=== PATIENT | male | born 1995 | race Caucasian/White ===

== ENCOUNTER → 2019-07-29 16:15 | Outpatient (BNVA) | payer OTHER, SELFPAY | PROVIDERS: Family Provider Family Medicine; PCP Nurse Practitioner Family; Visit Provider Nurse Practitioner Family | DX: M79.641 Pain in right hand (principal) | CPT/HCPCS: 73130 ==

== ENCOUNTER 2022-04-18 20:23 | Emergency (ER) | payer OTHER, SELFPAY ==
[2022-04-18 20:29] VITALS: BP 137/85; PULSE 98; RESP 16; TEMP 36.8; O2SAT 98
--- NOTE | 2022-04-18 21:01 | ED_ITS ---
HPI - Wound/Laceration General: Chief Complaint: Wound/Laceration Stated Complaint: left hand lac Time Seen by Provider: 04/18/22 21:01 History of Present Illness: 26-year-old male patient comes in today for injury to the left thenar region of the palmar hand. Patient reports a glass broke while he was doing dishes stabbing him into the hand. Patient believes his immunizations are up-to-date. Patient appears no acute distress. Review of Systems Skin/Breast: Reports: other (Injury left hand) [facility] ED PFSH: Medical History (Updated 04/18/22 @ 21:33 by AYAN Etienne) Anxiety disorder Depression Tobacco dependence Surgical History (Updated 12/12/21 @ 13:26 by Jamie Ferguson NP) History of appendectomy History of inguinal hernia repair History of oral surgery History of right knee surgery History of tonsillectomy Family History (Updated 12/12/21 @ 13:32 by Jamie Ferguson NP) Grandmother Cancer Maternal grandmother had breast cancer and bladder cancer Other Anxiety and depression Diabetes Hypertension Lupus Parkinson's disease Social History Smoking and tobacco status: current every day smoker smokeless tobacco Alcohol intake: current Alcohol intake frequency: few times a month Physical Exam Const: COMMON NORMALS: alert HENMT: COMMON NORMALS: normocephalic HEAD & SCALP: normocephalic Neck/C-Spine: COMMON NORMALS: full ROM Resp: COMMON NORMALS: normal respiratory effort Extremity: LEFT UPPER EXTREMITY: Yes hand & digits (2 cm laceration noted to the thenar hand.) Neuro: SENSORIUM/ORIENTATION: Yes alert Skin: TRAUMA: laceration (2 cm left palmar hand thenar region) linear Procedures Laceration Laceration 1: Site: hand Side (If applicable): left Size (cm): 2 Description: linear Depth: simple, single layer Local Anesthetic: lidocaine 1% Amount of anesthesia used (mL): 2 Pre-repair: wound explored and irrigated extensively Skin layer closed with: nylon Size (cm): 5-0 Number of sutures: 3 Technique: simple, interrupted (2) and horizontal mattress Course Vital Signs: Vital signs: Vital Signs Temperature 98.2 F 04/18/22 20:29 Pulse Rate 98 04/18/22 20:29 Respiratory Rate 16 04/18/22 20:29 Blood Pressure 137/85 04/18/22 20:29 Pulse Oximetry 98 04/18/22 20:29 Oxygen Delivery Me thod 04/18/22 20:29 MDM - Wound/Laceration Medical Decision Making 26-year-old male patient comes in for injury to the left palmar hand. On exam there is a 2 cm laceration to the thenar aspect of the left hand. Normal range of motion of the hand. Good strength. No signs of tendon injury. Differential diagnosis includes laceration, foreign body, tendon injury. No foreign body or tendon injury is noted on exam. Wound was repaired with 3 sutures. Patient tolerated well. Postprocedure care and instructions were reviewed with patient with recommendations for follow-up. Patient stated understanding. Discharge Plan Discharge Patient Disposition: Home Clinical Impression: Hand laceration Qualifiers: Encounter type: initial encounter Foreign body presence: without foreign body Laterality: left Qualified Code(s): S61.412A - Laceration without foreign body of left hand, initial encounter Condition: Stable Prescriptions: No Action duloxetine 40 mg capsule,delayed release(DR/EC) 40 mg PO DAILY Qty: 90 1RF alprazolam 0.25 mg tablet 0.25 mg PO DAILY PRN (Reason: anxiety) Qty: 30 0RF Rx Instructions: 1-2 tab daily PRN for anxiety Discharge Orders: Discharge ED (Routine); Ordered 04/18/22 Ordered By: Toby Ingram Referrals: Hernan Mccauley MD [Family Provider] - Jamie Ferguson NP [Primary Care Provider] - Discharge Diet: Usual diet Discharge Activity: Increase activity as tolerated Patient Instructions: Care For Your Stitches (ED) Activity Restrictions/Additional Instructions: Keep wound clean and dry for the next 2 days. Avoid the wound getting wet at least for 48 hours to help prevent infection. Sutures need to come out and 5 to 7 days. Follow-up with primary care in 1 week. Return to emergency department for new concerns or worsening symptoms. Coding Level of Care Code ED Real Estate Executive Assistant for Kendall Arora
[2022-04-18 22:04] VITALS: RESP 16
== END 2022-04-18 22:06 | disposition home or self-care (01) ==
PROVIDERS: Emergency Provider Nurse Practitioner Family; Family Provider Family Medicine; PCP Clinical Nurse Specialist Adult Health
DX: S61.412A Laceration without foreign body of left hand, initial encounter (principal); F17.220 Nicotine dependence, chewing tobacco, uncomplicated; W25.XXXA Contact with sharp glass, initial encounter; Y93.G1 Activity, food preparation and clean up
CPT/HCPCS: 12001; 99282

== ENCOUNTER → 2024-05-25 07:07 | Outpatient (BNVA) | payer MEDICAID, SELFPAY | PROVIDERS: Family Provider Family Medicine; PCP Clinical Nurse Specialist Adult Health; Visit Provider Clinical Nurse Specialist Adult Health | DX: R03.0 Elevated blood-pressure reading, without diagnosis of hypertension (principal); J45.20 Mild intermittent asthma, uncomplicated; F41.1 Generalized anxiety disorder | CPT/HCPCS: 80053; 82040; 84270; 84403; 84443; 85025 ==

== ENCOUNTER 2024-06-08 13:39 | Outpatient (CLI) | payer MEDICAID, SELFPAY ==
--- NOTE | 2024-06-08 14:00 | US_ITS ---
WS: [id number] ULTRASOUND SOFT TISSUES LEFT lateral lumbar region. HISTORY: M79.89 - Other specified soft tissue disorders COMPARISON: None available. TECHNIQUE: 2-D and color Doppler imaging is submitted. Ultrasound directed along the LEFT lateral lower spine in the area of interest. By ultrasound no abnormality is identified. Normal appearance of the fat and soft tissue. Visually there is prominent soft tissue which may indicate there is an underlying lipoma but there is no identifiable mass seen by ultrasound. US/US soft tissue/extremity [id number] IMPRESSION: No identifiable mass seen by ultrasound along the LEFT lateral lumbar region.
== END 2024-06-08 13:40 | disposition home or self-care (01) ==
LOC: RAD 13:40
PROVIDERS: Family Provider Family Medicine; PCP Clinical Nurse Specialist Adult Health; Visit Provider Clinical Nurse Specialist Adult Health
DX: M79.89 Other specified soft tissue disorders (principal)
CPT/HCPCS: 76882

== ENCOUNTER 2024-06-28 07:39 | Day surgery (SDC) | payer MEDICAID, SELFPAY ==
[2024-06-28] VITALS (9 sets, daily range): BP systolic 100–124; BP diastolic 73–80; PULSE 91–104; RESP 12–17; TEMP 36.6–36.8; O2SAT 94–100; BMI 27.7
--- NOTE | 2024-06-28 08:02 | W.PM.OPSUD ---
Surgery/Procedure H&P Update DATE OF PROCEDURE: June 28, 2024 DATE H&P PERFORMED: 06/15/24 H&P UPDATE INFORMATION: I have reviewed H&P completed within last 30 days, I have examined patient prior to procedure and No changes to prior documentation PLANNED PROCEDURE: Operation Date: 06/28/24 09:20 Proposed Procedures p excision of soft tissue mass on left side of back(Left) - Matthew Owens MD
--- NOTE | 2024-06-28 08:11 | P.ANESASSM_ITS ---
Pre-Anesthetic Assessment Height/Weight: Height 6 ft 1 in Weight 210 lb O2 Del Method Room Air 06/28/24 07:56 Preop Diagnosis: Back lipoma Operation Date: 06/28/24 09:20 Proposed Procedures p excision of soft tissue mass on left side of back(Left) - Matthew Owens MD Was Beta Tabby taken within 24 hours: N/A Was Clonidine taken within 24 hours: N/A Last intake: Intake Last Liquid Date 06/27/24 Last Liquid Time 20:00 Last Solid Date 06/27/24 Last Solid Time 20:00 Social No alcohol Quit smoking 10 years ago Exam alert, oriented x 3, clear to auscultation bilaterally and regular rate & rhythm Airway Submandibular: within normal limits Cervical ROM: within normal limits Mallampati: Class II Dentition: full Comments: Comments: Large benavidez Anesthetic Plan ASA status: 2 Anesthesia: General Other: No prior issues with anesthesia NPO since yesterday evening History of asthma, controlled with inhalers Denies any cardiac issues Prior smoker, quit 10 years ago METs greater than 4 Plan for general anesthesia Medications/Allergies Home Medications ?Medication ?Instructions ?Recorded ?Confirmed ?Last Taken ?Type albuterol sulfate 90 mcg/actuation 2 inh inhalation QI D PRN shortness 12/10/23 06/28/24 Unknown Rx aerosol inhaler of breath or wheezing #8.5 g santos alprazolam 0.5 mg tablet 0.5 mg PO DAILY PRN anxiety #30 06/01/24 06/27/24 Unknown Rx tabs cyclobenzaprine 5 mg tablet 5 mg PO TID PRN muscle spa sm #30 06/01/24 06/27/24 Unknown Rx tabs bupropion HCl 100 mg tablet,12 hr 100 mg PO QAM #30 ta bs 06/08/24 06/27/24 06/27/24 Rx sustained-release (Wellbutrin SR) Allergies Allergy/AdvReac Type Severity Reaction Status Date / Time cefaclor (From [facility]) Allergy HIVES Verified 06/27/24 12:34 [facility] Anesthesia Medical History Elevated blood pressure reading possibly white coat syndrome Mild intermittent asthma hx of asthma as a child. occasional bouts of bronchitis as an adult. Tobacco dependence quit 2022 Anxiety disorder Surgical History History of oral surgery History of tonsillectomy History of appendectomy History of right knee surgery History of inguinal hernia repair Family History Grandmother Cancer Maternal grandmother had breast cancer and bladder cancer Other Anxiety and depression Diabetes Hypertension Lupus Parkinson disease Social History Smoking and tobacco/nicotine status: never used tobacco/nicotine Quit status (tobacco/nicotine): has quit using Year quit tobacco: 2022 Former quit date comment: previously used smokeless tobacco Alcohol intake: current Alcohol intake frequency: few times a month Substance/Drug Use: never Household members: spouse and children Marital status: Number of children: 2 Data Anesthesia Cardiac Studies: No Data to Display
[2024-06-28] MEDS: sodium chloride 0.9% 1,000 ML 30 ML IV (08:32)
[2024-06-28] MEDS: vancomycin 2,000 MG/400 ML PIGGYBACK 200 MG IV (08:33)
[2024-06-28] MEDS: lidocaine-epi 1% 20 mL INJ 10 ML INJECTION (09:30)
--- NOTE | 2024-06-28 09:31 | P.OP_ITS ---
Operative Report Date of procedure: June 28, 2024 Pre-op diagnosis: Left dorsal lipoma Post-op diagnosis: same Post-op findings: Left dorsal lipoma 4x5cm Procedure done: Dorsal lipoma excision Implants: NA Specimens removed/disposition: Left dorsal lipoma sent to pathology Pathology: Left dorsal lipoma sent to pathology Surgeon: Matthew Owens MD Failure Analysis Engineer: N/A Anesthesia: General Estimated blood loss (mL): 10 Complications: N/A Findings: Left dorsal lipoma 5 x 4 cm Condition: stable Disposition: same day Brief History: 28-year-old male who presented with a left dorsal lipoma in the lumbar region. Discussed risk and benefits and patient agreed to proceed with left dorsal soft tissue mass excision. Procedure: Lipoma marked in preop with patient's input. Patient was brought into the operating room. SCDs were on and functioning. Antibiotics were administered. General anesthesia was induced. Patient was then positioned prone. Gel rolls were applied to chest and hip. Upper extremities were appropriately padded. The dorsum was prepped and draped in usual sterile fashion. A 4 cm incision was carried out over the lipoma site. Tissue was dissection was carried down to the subcutaneous tissues using electrocautery. Lipoma capsule was identified. The mass was grasped with an Allis clamp. The lipoma was excised using electrocautery with its capsule intact. Specimen was passed off and sent to pathology. Adequate hemostasis was achieved using electrocautery. The wound was irrigated with normal saline. The wound was closed in multiple layers using interrupted 2-0 Vicryl. Skin was closed using interrupted vertical mattress sutures using 2-0 nylon. Patient woke up from anesthesia without any complications and transferred to PACU.
--- NOTE | 2024-06-28 09:55 | PC.NURSE ---
0955 - pt states his pain is 7/10 but does not want any type of narcotic IV
[2024-06-28] MEDS: oxyCODONE 5 mg IR Tab/Cap PO (10:35)
--- NOTE | 2024-06-28 11:30 | ANE.PACU2 ---
Inpatient post-anesthesia follow up: Airway intact: Yes Vital signs: Temperature 98.2 F Pulse Rate 99 Respiratory Rate 16 Blood Pressure 115/78 Pulse Oximetry 97 Oxygen Delivery Me thod Room Air Oxygen Flow Rate Fraction of Inspir ed Oxygen Hydration adequate: Yes Nausea and vomiting: No Pain level: 1 Mental status: Baseline
== END 2024-06-28 11:30 | disposition home or self-care (01) ==
PROVIDERS: PCP Clinical Nurse Specialist Adult Health; Visit Provider Student in an Organized Health Care Education/Training Program
PROC: (CPT 21931; principal; 2024-06-28 09:20)
DX: D17.1 Benign lipomatous neoplasm of skin and subcutaneous tissue of trunk (principal); Z79.899 Other long term (current) drug therapy; Z88.1 Allergy status to other antibiotic agents; Z87.891 Personal history of nicotine dependence
CPT/HCPCS: 21931; 88307; J0131; J1100; J1885; J2250; J2405; J2704; J3010; J3372; J3490; J7030

== ENCOUNTER 2025-03-29 19:12 | Emergency (ER) | payer MEDICAID, SELFPAY ==
[2025-03-29] VITALS (7 sets, daily range): BP systolic 114–135; BP diastolic 71–83; PULSE 95–124; RESP 16; TEMP 36.9; O2SAT 94–98; BMI 29.8
--- NOTE | 2025-03-29 19:29 | XRR_ITS ---
PROCEDURE INFORMATION: Exam: XR Chest Exam date and time: 03/29/2025 7:32 PM Age: 29 years old Clinical indication: Pain; Angina pectoris; Additional info: Chest pain, dry cough, 1 week, tachy/hypertensive TECHNIQUE: Imaging protocol: Radiologic exam of the chest. Views: 1 view. COMPARISON: No relevant prior studies available. FINDINGS: Lungs: Unremarkable. No consolidation. Pleural spaces: No pneumothorax. Heart/Mediastinum: Unremarkable. No cardiomegaly. Bones/joints: Unremarkable. XR/XR chest 1V portable [id number] IMPRESSION: No acute findings.
--- NOTE | 2025-03-29 19:29 | ECG_ITS ---
[facility] Date: 2025-03[facility]29 Pat Name: Luis Mckeon Department: Room: Gender: Male Ski Instructor: : 1995 Requested By: Ry Garcia Order Number: [id number] Hernandez MD: Rosibel Moody M.D. Measurements Intervals [place] Rate: 127 P: 67 VA: 128 QRS: 114 QRSD: 87 T: 43 QT: 293 QTc: 426 Interpretive Statements SINUS TACHYCARDIA INDETERMINATE AXIS POSSIBLE RIGHT VENTRICULAR CONDUCTION DELAY [RSR (QR) IN V1/V2] LEFT POSTERIOR FASCICULAR BLOCK [QRS AXIS > 109, INFERIOR Q] No previous ECG available for comparison Electronically Signed On 03-30-2025 18:47:36 SCIENCE EDUCATION PROFESSOR by Rosibel Moody M.D. [id number]
--- NOTE | 2025-03-29 19:47 | W.ED.CHESTPA ---
HPI - Chest Pain General: Chief Complaint: Chest Pain Stated Complaint: Chest pain Time Seen by Provider: 03/29/25 19:24 History of Present Illness: 29-year-old male past medical history significant for hypertension presenting to the emergency department with approximately 1 week history of dry cough and initially intermittent left-sided chest and left sided shoulder blade pain, now more constant x 24 hours, 5 out of 10 in severity, stabbing, worse with deep breathing, no associated fevers, no associated runny nose or sore throat, no leg swelling or calf tenderness, no recent travel or immobilization, no personal or family history of DVT/PE, no exogenous hormone use, only significant family history of being strokes in both parents, non-smoker, denies drug use, denies recent travel or sick contacts. Related Data Previous Rx's ?Medication ?Instructions ?Recorded albuterol sulfate 90 mcg/actuation 2 inh inhalation QID PRN shortness 12/10/23 aerosol inhaler of breath or wheezing #8.5 grams alprazolam 0.5 mg tablet 0.5 mg PO DAILY PRN anxiety #30 06/01/24 tabs cyclobenzaprine 5 mg tablet 5 mg PO TID PRN muscle spasm #30 06/01/24 tabs bupropion HCl 100 mg tablet,12 hr 100 mg PO QAM #30 tabs 06/08/24 sustained-release (Wellbutrin SR) benzonatate 200 mg capsule 200 mg PO BID PRN cough 7 days #14 03/29/25 caps ibuprofen 600 mg tablet 600 mg PO Q6H PRN pain 7 days #30 03/29/25 tabs Allergies Allergy/AdvReac Type Severity Reaction Status Date / Time cefaclor (From [facility]) Allergy HIVES Verified 07/17/24 10:51 [facility] ED PFSH: Medical History Elevated blood pressure reading possibly white coat syndrome Mild intermittent asthma hx of asthma as a child. occasional bouts of bronchitis as an adult. Tobacco dependence quit 2022 Anxiety disorder Surgical History History of oral surgery History of tonsillectomy History of appendectomy History of right knee surgery History of inguinal hernia repair Family History Grandmother Cancer Maternal grandmother had breast cancer and bladder cancer Other Anxiety and depression Diabetes Hypertension Lupus Parkinson disease Social History Smoking and tobacco/nicotine status: never used tobacco/nicotine Quit status (tobacco/nicotine): has quit using Year quit tobacco: 2022 Former quit date comment: previously used smokeless tobacco Alcohol intake: current Alcohol intake frequency: few times a month Substance/Drug Use: never Household members: spouse and children Marital status: Number of children: 2 Physical Exam Narrative: EXAM NARRATIVE: Gen: A&Ox4, no acute distress, nontoxic appearing HEENT: Normocephalic, atraumatic, no scleral icterus, external ears normal, moist mucous membranes Neck: Supple, full range of motion, no observable masses Lungs: No Respiratory distress, Lungs clear to auscultation bilaterally no rales, rhonchi, wheezing CV: Tachycardic to 120s with regular rhythm, no murmur, no pitting edema to lower extremities bilaterally, no tenderness palpation of the chest wall or upper back, no skin changes Abdomen: Soft, nondistended, nontender to palpation MSK: No joint swelling, FROM all 4 extremities Skin: No rashes, petechiae, lesions. Normal color per patient. Neuro: Alert and oriented, no slurred speech, sensation and strength grossly intact all 4 extremities Psych: Appropriate for situation. Course Reevaluation(s): Reevaluation #1: Patient reevaluated, symptoms stable, heart rate still elevated although has improved with some fluids, workup reassuring against the presence of any significant myocarditis or pulmonary embolism as causes of occult tachycardia, patient does endorse some anxiety related to his symptoms and presenting to the ER and does have an as needed prescription for Xanax which she has not taken recently, suspect could be exacerbating the elevated heart rate. At this time he does not have any evidence of emergent pathology that would warrant admission or further intervention, he feels comfortable with monitoring his symptoms at home, optimizing hydration, NSAIDs for pain and antitussives, discussed extensively return precautions to include worsening pain, hemoptysis, fevers, shortness of breath, leg swelling or calf tenderness, episodes of passing out or palpitations, or any other concerns. Time: 21:12 Vital Signs: Vital signs: Vital Signs Temperature 98.4 F 03/29/25 19:17 Pulse Rate 102 H 03/29/25 20:38 Respiratory Rate 16 03/29/25 19:17 Blood Pressure 119/71 03/29/25 20:38 Pulse Oximetry 94 03/29/25 20:38 Oxygen Delivery Me thod Room Air 03/29/25 20:38 MDM - Chest Pain Medical Decision Making Generally healthy 29-year-old male with a past medical history significant for hypertension, anxiety, presenting to the emergency department with 1 week history of dry cough, initially intermittent and now constant left-sided chest pain and left scapular pain, some pleuritic component, no hypoxia or tachypnea, no fever, speaking in full sentences, no acute distress, suspect viral respiratory infection/bronchitis but differential would also include pneumonia, pericarditis/myocarditis, ACS less likely but considered, pulmonary embolism less likely but considered and given patient with tachycardia and pleuritic chest pain will obtain D-dimer for otherwise low pretest probability pulmonary embolism to rule out, plan for NSAIDs IV fluids and reassess. Lab Data Labs showing no leukocytosis or anemia, negative troponin, negative D-dimer, normal proBNP, normal electrolytes and kidney function, patient refused viral respiratory panel 03/29/25 19:32 03/29/25 19:32 Laboratory Results WBC 9.21 10^3/uL (3.29-11.43) 03/29/25 19:32 RBC 5.02 10^6/uL (3.85-5.65) 03/29/25 19:32 Hgb 14.90 g/dL (11.27-16.99) 03/29/25 19:32 Hct 44.5 % (37-53) 03/29/25 19:32 MCV 88.6 fl (82-101) 03/29/25 19:32 MCH 29.7 pg (27-33) 03/29/25 19:32 MCHC 33.5 g/dL (30-55) 03/29/25 19:32 RDW 12.9 % (12.1-15.1) 03/29/25 19:32 Plt Count 230 10^3/cmm (157-399) 03/29/25 19:32 MPV 9.7 fL (7.4-10.4) 03/29/25 19:32 Neut % (Auto) 65.5 % 03/29/25 19:32 Lymph % (Auto) 22.1 % 03/29/25 19:32 Stewart % (Auto) 10.6 % 03/29/25 19:32 Eos % (Auto) 1.0 % 03/29/25 19:32 Baso % (Auto) 0.3 % 03/29/25 19:32 Neut # (Auto) 6.02 10^3/uL (1.8-7.7) 03/29/25 19:32 Lymph # (Auto) 2.0 10^3/uL (0.8-4.8) 03/29/25 19:32 Stewart # (Auto) 1.0 10^3/uL (0.2-0.9) H 03/29/25 19:32 Eos # (Auto) 0.1 10^3/uL (0.0-0.8) 03/29/25 19:32 Baso # (Auto) 0.0 10^3/uL (0.0-0.1) 03/29/25 19:32 Nucleated RBC % (auto) 0 % 03/29/25 19:32 Nucleated RBCs # 0.0 /100WBC 03/29/25 19:32 D-Dimer 0.47 ug/mLFEU (0-0.59) 03/29/25 19:32 Sodium 138 mmol/L (136-145) 03/29/25 19:32 Potassium 4.6 mmol/L (3.5-5.1) 03/29/25 19:32 Chloride 98 mmol/L (98-107) 03/29/25 19:32 Carbon Dioxide 28 mmol/L (22-29) 03/29/25 19:32 Anion Gap 16.6 (5-19) 03/29/25 19:32 BUN 16 mg/dL (6-20) 03/29/25 19:32 Creatinine 1.1 mg/dL (0.7-1.2) 03/29/25 19:32 GFR Calculation 78.1 mL/min (90-130) L 03/29/25 19:32 Glucose 125 mg/dL (65-115) H 03/29/25 19:32 Calculated Osmolality 289 mOsm/kg (285-295) 03/29/25 19:32 Calcium 9.8 mg/dL (8.5-10.5) 03/29/25 19:32 Troponin T Baseline 7 ng/L (0-15) 03/29/25 19:32 NT-Pro-B Natriuret Pep < 36 pg/mL (0-125) 03/29/25 19:32 All radiology interpretation(s) finalized by discharge ED provider radiology interpretation(s): Chest x-ray showing no significant bacterial consolidation EKG Data EKG 1: I personally reviewed and interpreted this EKG as follows: EKG interpretation date: 03/29/25 EKG interpretation time: 19:52 Interpretation: Sinus tachycardia at 127 bpm, no STEMI, no ectopy, QTc 368 ms, left posterior fascicular block, right axis deviation Discharge Plan Discharge Patient Disposition: Home Clinical Impression: Viral infection of lower respiratory system, Tachycardia Condition: Stable Prescriptions: New benzonatate 200 mg capsule 200 mg PO BID PRN (Reason: cough) 7 Days Qty: 14 0RF ibuprofen 600 mg tablet 600 mg PO Q6H PRN (Reason: pain) 7 Days Qty: 30 0RF No Action albuterol sulfate 90 mcg/actuation HFA aerosol inhaler 2 inh inhalation QID PRN (Reason: shortness of breath or wheezing) Qty: 8.5 11RF cyclobenzaprine 5 mg tablet 5 mg PO TID PRN (Reason: muscle spasm) Qty: 30 0RF alprazolam 0.5 mg tablet 0.5 mg PO DAILY PRN (Reason: anxiety) Qty: 30 2RF Rx Instructions: 1-2 tab daily PRN for anxiety bupropion HCl [Wellbutrin SR] 100 mg tablet sustained-release 12 hr 100 mg PO QAM Qty: 30 0RF Discharge Orders: Discharge ED (Routine); Ordered 03/29/25 Ordered By: Ry Garcia Referrals: Hernan Mccauley MD [Family Provider, Family Practice] Jamie Ferguson NP [Primary Care Provider, Family Practice] Patient Instructions: Patient Portal & Anastasia Instructions, Tachycardia (ED), Upper Respiratory Infection (ED) Activity Restrictions/Additional Instructions: return precautions to include worsening pain, cough with blood in it, fevers, shortness of breath, leg swelling or calf tenderness, episodes of passing out or palpitations, or any other concerns. Print Language: Cameroonian Coding Level of Care Code ED Scrubbing Machine Operator for Chg Fwd Heart Score HEART Score Components History: Slightly Suspicous EKG: Normal Age: Less than 45 yrs Risk Factors: 1 or 2 Risk Factors Troponin: Baseline Trop <16 ng/L HEART Score RESULT HEART Score: 1
--- NOTE | 2025-03-29 19:48 | PC.NURSE ---
Pt. refused swab, provider notified.
[2025-03-29 19:52] LABS: Hematocrit 44.5 % (37-53); Hemoglobin 14.90 g/dL (11.27-16.99); Mean Corpuscular HGB Conc 33.5 g/dL (30-55); Mean Corpuscular Hemoglobin 29.7 pg (27-33); Mean Corpuscular Volume 88.6 fl (82-101); Nucleated Red Blood Cells % 0 %; Platelet Count 230 10^3/cmm (157-399); Red Blood Count 5.02 10^6/uL (3.85-5.65); White Blood Count 9.21 10^3/uL (3.29-11.43)
[2025-03-29 20:02] LABS: Troponin(5th) Baseline 7 ng/L (0-15)
[2025-03-29 20:10] LABS: Anion Gap 16.6 (5-19); Blood Urea Nitrogen 16 mg/dL (6-20); Calcium 9.8 mg/dL (8.5-10.5); Carbon Dioxide 28 mmol/L (22-29); Chloride 98 mmol/L (98-107); Glucose 125 mg/dL (65-115); NT Pro B Type Natriuretic Pept < 36 pg/mL (0-125); Osmolality Calculated 289 mOsm/kg (285-295); Potassium 4.6 mmol/L (3.5-5.1); Sodium 138 mmol/L (136-145)
--- OUTSIDE RECORDS SUMMARY | 2025-03-29 20:20 | XMS_ITS | Clinical Summary ---
Author Organization [facility] Address [address] [place] [address] Care Team Providers Care Treasurer Name Role Phone Unavailable Primary Care Provider Unavailabl e Allergies Active Allergy Reactions Criticality Noted Date Comments Cefaclor Hives High 12/19/2008 Medications No known medications Active Problems No known active problems Immunizations Immunization Administration Dates Next Due (M-M-R II/PRIORIX)(12 MO UP) MEASLES, MUMPS AND RUBELLA VIRUS VACCINE, 0.5 ML IM/SUBCUT 07/26/1998,12/18/1994 (VARIVAX)(12 MOS UP)VARICELL A VIRUS VACCINE (PF) 0.5 ML, SUB CUT 09/14/1997 Dt Dtp Dtap Vaccine 03/02/1997, 5,03/18/1994,1993 HIB, Unspecified Formulation 03/02/1997, 08/21/1994,03/18/1994,1993 Hepatitis A Vaccine 01/10/1998 Hepatitis B Vaccine 03/18/1994,1993,1993 IPV/OPV 03/02/1997,03/18/1994,1993 Family History Medical History Relation Name Comments Diabetes Father Cancer Maternal Grandmother bladder ca Diabetes Maternal Grandmother Heart Disease Maternal Grandmother Hypertension Maternal Grandmother Kidney Disease Maternal Grandmother Breast Cancer Paternal Grandmother Relation Name Status Comments Father Maternal Grandmother Paternal Grandmother Social History Tobacco Use Types Packs/Day Years Used Date Smoking Tobacco: Never Smokeless Tobacco: Current Chew Alcohol Use Standard Drinks/Week Comments Yes 0 (1 standard drink = 0.6 oz pur e alcohol) occasional Sex and Gender Information Value Date Recorded Sex Assigned at Not on file 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 Gender Identity Not on file Sexual Orientation Not on file Occupation Industry Job Start Date Job End Date Not on file Not on file Not on file Not on file Not on file Not on file Not on file Not on file Last Filed Vital Signs Vital Sign Reading Time Taken Comments Blood Pressure 112/74 01/05/2014 11:21 AM CDT Pulse 97 01/05/2014 11:21 AM CDT Temperature 36.8 C (98.3 F) 01/05/2014 11:21 AM CDT Respiratory Rate 20 01/05/2014 11:21 AM CDT Oxygen Saturation 98% 01/05/2014 11:21 AM CDT Inhaled Oxygen Concentration - - Weight 68.9 kg (152 lb) 01/05/2014 11:21 AM CDT Height 180.3 cm (5' 11 ) 01/05/2014 11:21 AM CDT Body Mass Index 21.2 01/05/2014 11:21 AM CDT Plan of Treatment Health Maintenance Due Date Last Done Comments DTAP/TDAP/TD VACCINES (5 - Tdap) 2004 03/02/1997, 08/21/1994, 03/18/1994, Additional history exists HPV VACCINES (1 - 3-dose SCD M series) 2020 INFLUENZA VACCINE (#1) 2024 HEPATITIS B VACCINES Completed 03/18/1994, 1993, [address] [facility] [address] [place] [address]
--- OUTSIDE RECORDS SUMMARY | 2025-03-29 20:20 | XMS_ITS | Encounter Summary ---
Author Organization [facility] Address [address] [place] [address] Care Team Providers Care Script Writer Name Role Phone Unavailable Primary Care Provider Unavailabl e Encounter Details Date Type Department Care Team (Latest Contact Info) Description 12/29/2005 Outpatient Historical [facility] [place] [address] [facility] [address] [place] [id number] Samm Olivas, DMD [address] [place] [address] Tooth eruption disturb (Primary Dx) Social History Tobacco Use Types Packs/Day Years Used Date Smoking Tobacco: Never Assessed Sex and Gender Information Value Date Recorded Sex Assigned at Not on file 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
--- OUTSIDE RECORDS SUMMARY | 2025-03-29 20:20 | XMS_ITS | Encounter Summary ---
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 Left inguinal hernia sac, excision - benign fibrovascular and fibroadipose tissue consistent with hernia sac. Chris Charles M.D. (Electronically signed by) Verified: 11/10/07 DD /TKB Clinical Information Hernia sac. Specimen Source AHernia Sac, LEFT INGUINAL Microscopic Description Microscopic examination was performed. Gross Description Part A. Submitted in a container of formalin labelled Fernandez is a pinkish- perez strip of membranous tissue measuring 5.3 x 2.3 x 0.5 cm. Board Finisher sections are submitted in A1. DLS/TKB INTERFACE SYSTEM 11/08/2007 8:25 AM CDT us Beto Aaron DO PATHOLOGY/CYTOLOGY ORDERABLES Final Result INTERFACE SYSTEM Refer to clinic/hospital department documented in this encounter Visit Diagnoses Not on filedocumented in this encounter
--- OUTSIDE RECORDS SUMMARY | 2025-03-29 20:20 | XMS_ITS | Patient Health Record ---
Author Organization [facility] Address [address] [place] [id number] Care Team Providers Care Hand Fur Cleaner Name Role Phone Non Rent the Runway Provider, Provider Primary Care P sonia Unavailable Edilberto Harp Unavailable [phone] Results Component Value Reference Range Notes Urine Dip Reviewed date:01/26/2025 02:23:17 PM Interpretation:Normal Performing Lab: Notes/Report: Testing performed at the [address] [place] [address] location. U COL Yellow Yellow U TURB Clear Clear U SG 1.030 1.000-1.030 U PH 5 5.0-8.0 U PRO neg Negative mg/dL U GLU norm Normal mg/dL U KET neg Negative mg/dL U BILI neg Negative mg/dL U BLD neg Negative ADE/ul U NIT neg Negative U LEUK neg Negative DELIALH/uL U UBG norm Normal mg/dl Procedure: DOT Physical Reviewed date:01/26/2025 02:34:29 PM Interpretation: Performing Lab: Notes/Report: Reason For Referral No Information Vital Signs Heart Rate 98 /min 01/26/2025 Temperature 97.5 degrees Fahrenheit 01/26/2025 Respiratory Rate 18 /min 01/26/2025 Height-cm 181.61 cm 01/26/2025 Oximetry 98 01/26/2025 Blood pressure diastolic 86 mm Hg 01/26/2025 Weight-kg 97.98 Kg 01/26/2025 Height 71.5 in 01/26/2025 Blood pressure systolic 136 mm Hg 01/26/2025 Weight 216 lbs 01/26/2025 BMI 29.7 kg/m2 01/26/2025 Encounters Encounter Location Date Provider Diagnosis [facility] [address] [place] [phone] 01/26/2025 Edilberto Harp Encounter for examination required by Department of Transportation (DOT) Z02.89 Assessments Encounter Date Diagnosis (ICD Code) Assessment Notes Treatment Notes Treatment Clinical Notes Section Notes 01/26/2025 Encounter for examination required by Department of Transportation (DOT) (ICD-10 - Z02.89) See scanned document Plan Of Treatment No Information Insurance Providers Payer Name Payer Address Payer Phone Subscriber Number Group Number Insured Name Patient Relationship to Insured Coverage Start Date Coverage End Date R Vaprema [address] [place] [phone] Luis Mckeon Self - patient is the insured
--- OUTSIDE RECORDS SUMMARY | 2025-03-29 20:21 | XMS_ITS | Patient Health Record ---
Author Organization [facility] Address [address] [place], [place] [id number] Care Team Providers Care Assistant Director Of Residence Life Name Role Phone DR. SHAQ RODRIGUEZ Primary Care Provide r [phone] Reason For Referral No Information Plan Of Treatment No Information
--- OUTSIDE RECORDS SUMMARY | 2025-03-29 20:21 | XMS_ITS | Encounter Summary ---
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
--- OUTSIDE RECORDS SUMMARY | 2025-03-29 20:21 | XMS_ITS | Encounter Summary ---
Author Organization [facility] Address [address] [place] [address] Care Team Providers Care Consolidator Name Role Phone Unavailable Primary Care Provider Unavailabl e Encounter Details Date Type Department Care Team (Latest Contact Info) Description 05/18/2014 Ancillary Orders [facility] Centralized Scheduling [address] [place] [phone] Tho Cavazos, AYAN Wu [address] [place] [address] Meniscus tear (Primary Dx) Social History Tobacco Use Types Packs/Day Years Used Date Smoking Tobacco: Never Smokeless Tobacco: Current Chew Alcohol Use Standard Drinks/Week Comments Yes 0 (1 standard drink = 0.6 oz pur e alcohol) occasional Sex and Gender Information Value Date Recorded Sex Assigned at Not on file 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
--- OUTSIDE RECORDS SUMMARY | 2025-03-29 20:22 | XMS_ITS | Clinical Summary ---
Author Organization [facility] Address [address] Attn: Epic Prelude ADT [place] [address] Care Team Providers Care Director Of Food And Nutrition Services Name Role Phone Unavailable Primary Care Provider Unavailabl e Allergies Active Allergy Reactions Criticality Noted Date Comments Cefaclor Hives High 12/19/2008 Immunizations Immunization Administration Dates Next Due (M-M-R [...] Date Smoking Tobacco: Never Smokeless Tobacco: Current Alcohol Use Standard Drinks/Week Comments Yes 0 (1 standard drink = 0.6 oz pur e alcohol) Sex and Gender Information Value Date Recorded Sex Assigned at Not on file 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
== END 2025-03-29 21:46 | disposition home or self-care (01) ==
PROVIDERS: Emergency Provider Student in an Organized Health Care Education/Training Program; Family Provider Family Medicine; PCP Clinical Nurse Specialist Adult Health
DX: J98.8 Other specified respiratory disorders (principal); R00.0 Tachycardia, unspecified; Z87.891 Personal history of nicotine dependence
CPT/HCPCS: 71045; 80048; 83880; 84484; 85025; 85378; 93005; 96374; 99285; J1885; J7030; J9999

== ENCOUNTER → 2025-04-04 08:57 | Outpatient (BNVA) | payer MEDICAID, SELFPAY | PROVIDERS: Family Provider Family Medicine; PCP Clinical Nurse Specialist Adult Health; Visit Provider Clinical Nurse Specialist Adult Health | DX: E86.0 Dehydration (principal) | CPT/HCPCS: 80053; 85379 ==

== ENCOUNTER 2025-04-09 11:33 | Outpatient (CLI) | payer MEDICAID, SELFPAY ==
--- NOTE | 2025-04-09 12:00 | CT_ITS ---
WS: [id number] CT CHEST ANGIOGRAPHY WITH REFORMATS HISTORY: R00.0 - Tachycardia, unspecified TECHNIQUE: Contiguous axial images are obtained through the chest during arterial injection of intravenous contrast. Images are reconstructed to evaluate the pulmonary arteries. MIP imaging also reviewed. All CT scans at [facility] use at least one of these dose optimization techniques: automated exposure control; mA and/or kV adjustment per patient size (includes targeted exams where dose is matched to clinical indication); or iterative reconstruction. CONTRAST: Omnipaque 350; 100 mL IV. DLP: 398.54 mGy.cm COMPARISON: Radiograph 03/29/2025 Good contrast opacification of the pulmonary arteries. No central pulmonary emboli or filling defects. No RIGHT heart strain. Mild enlargement of the LEFT heart. No pericardial or pleural effusions. Numerous subcentimeter pulmonary nodules are identified throughout the lungs. These nodules range in size from a few millimeters to the largest measuring 7 mm. Margins are slightly irregular of these nodules. Bilateral hilar adenopathy with the largest lymph nodes measuring 13 mm. Normal axillary lymph nodes. Visualized liver and spleen are normal. The entire spleen is not included but could be enlarged. No adrenal mass. Visualized gallbladder is normal. Several Schmorl's nodes in the thoracic spine. CT/CT angio chest PE protcl [id number] IMPRESSION: 1. No pulmonary embolism. 2. Numerous bilateral subcentimeter pulmonary nodules. These nodules are sligh tly irregular in shape. Differential includes metastatic disease, septic emboli or infectious etiology. Consider histoplasmosis. 3. Mild hilar lymphadenopathy.
== END 2025-04-09 11:34 | disposition home or self-care (01) ==
LOC: RAD 11:34
PROVIDERS: PCP Clinical Nurse Specialist Adult Health; Visit Provider Clinical Nurse Specialist Adult Health
DX: R00.0 Tachycardia, unspecified (principal); R06.09 Other forms of dyspnea; I51.7 Cardiomegaly; R91.8 Other nonspecific abnormal finding of lung field; R59.0 Localized enlarged lymph nodes
CPT/HCPCS: 71275

== ENCOUNTER 2025-04-10 10:27 | Outpatient (CLI) | payer MEDICAID, SELFPAY ==
[2025-04-10 11:35] LABS: Hematocrit 46.3 % (37-53); Hemoglobin 15.50 g/dL (11.27-16.99); Mean Corpuscular HGB Conc 33.5 g/dL (30-55); Mean Corpuscular Hemoglobin 29.6 pg (27-33); Mean Corpuscular Volume 88.5 fl (82-101); Platelet Count 274 10^3/cmm (157-399); Red Blood Count 5.23 10^6/uL (3.85-5.65); White Blood Count 9.37 10^3/uL (3.29-11.43)
[2025-04-10 12:00] LABS: Total Cells Counted 100 (0-100)
[2025-04-10 12:06] LABS: Absolute Segmented Neutrophil 6.2 10/cmm (1.6-7.1); Atypical Lymphs 5.0 % (0-5); Band Neutrophils Absolute 0.0 10^3/cmm (0.0-1.2)
[2025-04-10 12:07] LABS: Procalcitonin 0.07 ng/mL (0-0.5)
== END 2025-04-10 10:28 | disposition home or self-care (01) ==
LOC: LAB 10:29
PROVIDERS: PCP Clinical Nurse Specialist Adult Health; Visit Provider Clinical Nurse Specialist Adult Health
DX: R91.8 Other nonspecific abnormal finding of lung field (principal)
CPT/HCPCS: 36415; 84145; 85007; 85027; 85651; 86140; 86308

== ENCOUNTER 2025-04-11 09:46 | Outpatient (CLI) | payer MEDICAID, SELFPAY ==
--- NOTE | 2025-04-11 10:00 | USR_ITS ---
PROCEDURE INFORMATION: Exam: US Bilateral Noninvasive Physiologic Study of the Lower Extremity Arteries, Limited Exam date and time: 04/11/2025 11:05 AM Age: 29 years old Clinical indication: Other: 15 mmjhg pressure difference in the arms; Additional info: R68.89 - other general symptoms and signs TECHNIQUE: Imaging protocol: Bilateral Limited bilateral noninvasive physiologic studies of lower extremity arteries. Waveforms were obtained and evaluated. Images were documented and archived. Exam is limited. COMPARISON: US soft tissue/extremity [id number] 06/08/2024 1:45 PM FINDINGS: Right Ankle-Brachial Index: 1.25. Left Ankle-Brachial Index: 1.19. US/CV ankle brachial index [id number] IMPRESSION: No evidence of stenosis or occlusion in the lower extremity.
== END 2025-04-11 09:47 | disposition home or self-care (01) ==
LOC: RAD 09:47
PROVIDERS: PCP Clinical Nurse Specialist Adult Health; Visit Provider Clinical Nurse Specialist Adult Health
DX: R68.89 Other general symptoms and signs (principal); R03.0 Elevated blood-pressure reading, without diagnosis of hypertension
CPT/HCPCS: 93306; 93922

== ENCOUNTER → 2025-04-16 12:39 | Outpatient (BNVA) | payer MEDICAID, SELFPAY | PROVIDERS: PCP Clinical Nurse Specialist Adult Health; Visit Provider Clinical Nurse Specialist Adult Health | DX: R68.89 Other general symptoms and signs (principal); R94.31 Abnormal electrocardiogram [ECG] [EKG]; R07.9 Chest pain, unspecified | CPT/HCPCS: 86698 ==